=== PATIENT | female | born 1960 | race Caucasian/White ===

== ENCOUNTER 2025-02-19 08:04 | Inpatient (IN) | payer MEDICARE, MEDICAID ==
[~2025-02-19] VITALS: Ht 170.2 cm; Wt 108.0 kg
[~2025-02-19 08:04] MED LIST: ACET-1008 PO; ALB0.5UD NEB; ALLO100T16 PO; ASPI-1265 PO; ATOR20TA66 PO; BACL10TA2 PO; BENZ200C53 PO; BISA10SU60 RC; CEFD300C3 PO; DOCU100C40 PO; ENOX40SY7 SUBCUT; HYDR-3965 PO; IPRA3AMP31 IH; LACT1CAP86 PO; LOSA1TAB39 PO; MAGN400O6 PO; MULT-381 PO; NA P230E RC; OMEP-419 PO; TRAZ-251 PO
--- NOTE | 2025-02-19 09:15 | Physician Documentation ---
History of Present Illness General Chief Complaint: Dizziness Stated Complaint: DIZZINESS Time Seen by MD: 08:09 Primary Medical Doctor: Dr Ramos History of Present Illness Initial Comments The patient is a 65-year-old female who was transferred to our facility from [facility] for complaint of dizziness. The patient states she has had abdominal pain for a month and she has had intermittent nausea and vomiting as well as persistent dizziness. The patient denied any abdominal pain currently. She denies any fevers. She denies any shortness of breath. Patient is confused and somnolent and history is difficult most of the history has been given by EMS. Medication Reconciliation Allergies: Coded Allergies: Penicillins (Verified Allergy, Unknown, 02/19/25) Scheduled Allopurinol (Allopurinol), 100 MG PO DAILY, (Reported) Aspirin (Aspirin), 1 TAB PO DAILY, (Reported) Atorvastatin Calcium (Atorvastatin Calcium), 1 TAB PO DAILY, (Reported) Benzonatate (Benzonatate), 1 CAP PO DAILY, (Reported) Docusate Sodium (Docusate Sodium), 1 CAP PO Q12H, (Reported) Enoxaparin Sodium (Lovenox), 0.4 ML SUBCUT DAILY, (Reported) Escitalopram Oxalate (Escitalopram Oxalate), 1 TAB PO DAILY, (Reported) Gabapentin (Gabapentin), 1 CAP PO Q8H, (Reported) Lactobacillus Acidophilus (Acidophilus Lactobacilli), 1 CAP PO Q12H, (Reported) Losartan/Hydrochlorothiazide (Losartan-Hctz 100-25 Mg Tab), 1 TAB PO DAILY, (Reported) Multivitamin with Minerals (Daily Vitamin Formula-Minerals), 1 TAB PO DAILY, (Reported) Omeprazole (Omeprazole), 1 TAB PO DAILY, (Reported) Trazodone HCl (Trazodone HCl), 1 TAB PO HS, (Reported) Scheduled PRN Acetaminophen (Tylenol), 2 TAB PO Q6H PRN for pain, (Reported) Albuterol Sulfate Nebs* (Proventil Nebs*), 1 VIAL NEB Q2H PRN for SOB or wheezing, (Reported) Baclofen (Baclofen), 1 TAB PO Q8H PRN for muscle spasms, (Reported) Bisacodyl (Dulcolax), 1 SUPP RC DAILY PRN for constipation, (Reported) Hydrocodone Bit/Acetaminophen 5/325 MG (Jackson 5/325 MG), 1-2 TAB PO Q6H PRN for pain, (Reported) Ipratropium/Albuterol Sulfate (Duoneb 2.5-0.5 Mg/3 Ml Soln), 3 ML IH Q4H PRN for SOB or wheezing, (Reported) Magnesium Hydroxide (Milk of Magnesia), 30 ML PO DAILY PRN for constipation, (Reported) Na Phos,M-B/Na Phos,Di-Ba (Fleet Enema Extra), 1 RC DAILY PRN for constipation, (Reported) Miscellaneous Medications ONDANSETRON ODT 4mg tablet (Ondansetron Odt), 4 MG PO, (Reported) Discontinued Medications Cefdinir* (Cefdinir*), 1 CAP PO Q12H, (Reported) Discontinued Reason: patient no longer taking Past Medical History Past Medical History: GERD, Pancreatitis, Chronic Back Pain, Anxiety, Depression Past Surgical History: hysterectomy, tubal ligation, other Smoking: Cigarettes Alcohol Use: None Drug Use: none Lives with: Spouse Review of Systems All Other Systems at this time: Reviewed and Negative Physical Exam Physical Exam Vital Signs: Temperature: 97.6, Source: Oral, Heart Rate: 77, Respiratory Rate: 14, BP: 85/44, Pulse Oximetry: 93, Weight: 108.000 Physical Exam VITALS: Reviewed and as above. GENERAL: Somnolent but arousable, no apparent distress. HEENT: Normocephalic, atraumatic, PERRL, EOMI, dry mucosa, no erythema RESPIRATORY: Bilateral wheezes crackles right mid lung, no respiratory distress. CHEST: No accessory muscle use, no retractions CV: Regular rate, rhythm, no edema, no murmur, No: JVD GI: Soft, distended some epigastric tenderness bowels sounds present, no rebound, guarding, or rigidity BACK: No CVA tenderness, or swelling MUSCULOSKELETAL: No deformities, no edema SKIN: Warm and dry, no rash NEURO: Oriented x2, No motor or sensory deficit the patient is oriented to name and to the month but not to the date and she is confused and has to be frequently stimulated to as she falls asleep PSYCH: Somnolent no agitation Progress Results/Orders Results/Orders Orders - OHLFS,TRISTAN Mcfarlane MD Chest,Single View (02/19/25 09:04) Saline Lock (02/19/25:04) Monitor (02/19/25:) Culture Blood (02/19/25 11:29) Page Hospitalist (02/19/25:) Fill Out Med Reconciliation (02/19/25:) Completed Orders - OHLFS,TRISTAN Mcfarlane MD Cbc/Diff (02/19/25:) MG (02/19/25:04) Electrocardiogram (02/19/25:) PBNP (02/19/25:04) Chest,Single View (02/19/25:) BMP (02/19/25:) Hs Troponin I W Calculations (02/19/25:) Hs Troponin I W Calculations (02/19/25:) Hs Troponin I W Calculations (02/19/25 12:04) Procalcitonin (02/19/25:) Normal Saline 1000ml (0.9% Sodium Chlori (02/19/25 09:05) Urinalysis, Cult If Indicated (02/19/25:) Normal Saline 1000ml (0.9% Sodium Chlori (02/19/25 11:30) Ceftriaxone 2gm/D5w 50ml Bag (Rocephin 2 (02/19/25 11:) Lacticsepsis (02/19/25 11:33) Hydrocodone/Apap 5/325mg Tab (Jackson 5/32 (02/19/25 12:05) Vital Signs 02/19/25 02/19/25 08:19 10:55 Temp 97.6 Pulse 77 Resp 14 25 B/P (MAP) 85/44 Pulse Ox 93 Laboratory Tests Test 02/19/25 09:40 02/19/25 10:58 02/19/25 11:56 White Blood Count 8.6 Red Blood Count 3.63 L Hemoglobin 12.1 Hematocrit 34.6 L Mean Corpuscular Volume 95.4 Mean Corpuscular Hemoglobin 33.4 H Mean Corpuscular Hemoglobin Concent 35.0 Red Cell Distribution Width 14.7 H Platelet Count 411 Mean Platelet Volume 8.0 Neutrophils (%) (Auto) 74.3 Lymphocytes (%) (Auto) 12.8 L Monocytes (%) (Auto) 11.3 Eosinophils (%) (Auto) 0.6 Basophils (%) (Auto) 1.0 Neutrophils # (Auto) 6.4 Lymphocytes # (Auto) 1.1 Monocytes # (Auto) 1.0 H Eosinophils # (Auto) 0.0 Basophils # (Auto) 0.1 CBC Comment Sodium Level 135 Potassium Level 4.5 Chloride Level 100 Carbon Dioxide Level 24.9 Anion Gap 10 Blood Urea Nitrogen 61 H Creatinine 2.51 H Estimated GFR/1.73 m2 19 BUN/Creatinine Ratio 24.3 H Glucose Level 123 H Lactic Acid Level 0.8 Calcium Level 8.3 L Magnesium Level 1.5 Troponin I High Sensitivity 9 8 9 Pro-B-Type Natriuretic Peptide 735 H Albumin 1.8 L Procalcitonin 1.52 H Chemistry Comments Troponin I High Sens Percent Delta 11 12 Troponin I Hi Sens Absolute Change -1 1 Microbiology Date/Time Source Procedure Growth Status 02/19/25 11:56 Blood Arm Left Blood Culture - Preliminary NO GROWTH AFTER 3 DAYS Resulted EKG/XRAY/CT/US/VASC/MRI Chest X-Ray : Additional Comments Patient: EDITH YAÑEZ Medical Record: [id number] ELIZABETH FORT THOMAS : 1960, Age: 65 Sex: Female Location: ER Patient Status: [facility] ER Service Date/Time: 02/19/25903 Ordering Physician: TRISTAN POWELL MD Exam: CHEST,SINGLE VIEW CHEST RADIOGRAPH Indication: CP Technique: Single frontal view of the chest was obtained COMPARISON: DI CHEST,SINGLE VIEW on DOS: 01/28/25 FINDINGS: Lines and Tubes: None Lungs: Mildly increased markings right lung base. Pleura: Blunting left costophrenic angle new since the prior study. Small pleural effusion suspect. No pneumothorax. Cardiomediastinal contours: Unremarkable Bones: Unremarkable IMPRESSION: 1. Small left pleural effusion. Mildly increased markings right lung base. Electronically Signed by:CARA VARNER MD Date & Time: 02/19/25929 Dictated by: CARA VARNER MD Dictation date and time: 02/19/25910 Primary Care Provider: NO PRIMARY CARE PROVIDER cc: TRISTAN POWELL MD ~ Medical Decision Making Findings The patient is 12 lead EKG was interpreted as a sinus rhythm with a normal axis and low voltages. The patient also had nonspecific ST abnormalities time of the EKG interpretation was 9:17 a.m. and the heart rate was 81 was interpreted as an abnormal EKG. The patient presents with dizziness and weakness patient was found to be in acute kidney injury as well as to have likely pneumonia, the patient was treated with antibiotics. The patient was given IV fluids in the emergency department. The patient has remained hemodynamically stable. Previous hospitalizations have been reviewed. The patient's pulse oximetry was interpreted as low and abnormal. The patient's he will be admitted to the hospitalist case has been discussed with the hospitalist. The patient will also had hypotension I do believe this is secondary to dehydration rather than sepsis the patient was treated with IV fluids. Departure Admitted to Inpatient Unit: yes, to hospitalist Impression: Primary Impression: Acute kidney injury Additional Impressions: Altered mental status, unspecified Qualified Codes: R41.82 - Altered mental status, unspecified Pneumonia Qualified Codes: J18.9 - Pneumonia, unspecified organism Dizziness Dehydration Referrals: NO PRIMARY CARE PROVIDER (PCP) Signature Scribe Signature: no scribe Attestation: The note accurately reflects work and decisions made by me.Tristan Powell MD 02/23/25 07:46 TRISTAN POWELL MD Feb 19, 2025 09:15
--- NOTE | 2025-02-19 09:17 | ELECTROCARDIOGRAPH REPORT ---
[facility] Test Date: 2025-02-19 Test Time: 09:15:20 Pat Name: EDITH YAÑEZ Department[id number] Room: Gender: F [employer] Athlete: : 1960 Requested By: TRISTAN JACK Order Number: [id number] Reading MD: Measurements Intervals [place] Rate: 81 P: 52 ND: 166 QRS: 55 QRSD: 91 T: 34 QT: 470 QTc: 546 Interpretive Statements Sinus rhythm Low voltage, precordial leads Borderline T wave abnormalities Prolonged QT interval Please click the below link to view image of tracing.
--- NOTE | 2025-02-19 09:33 | RADIOLOGY REPORT ---
CHEST RADIOGRAPH Indication: CP Technique: Single frontal view of the chest was obtained COMPARISON: DI CHEST,SINGLE VIEW on DOS: 01/28/25 FINDINGS: Lines and Tubes: None Lungs: Mildly increased markings right lung base. Pleura: Blunting left costophrenic angle new since the prior study. Small pleural effusion suspect. No pneumothorax. Cardiomediastinal contours: Unremarkable Bones: Unremarkable IMPRESSION: 1. Small left pleural effusion. Mildly increased markings right lung base.
[2025-02-19 10:09] LABS: MEAN PLATELET VOLUME 8.0 FL (7.4-10.4); RED CELL DISTRIBUTION WIDTH 14.7 % (11.5-14.5)
[2025-02-19 10:32] LABS: CREATININE 2.51 MG/DL (0.40-0.90); PRO BRAIN NATRIURETIC PEPTIDE 735 PG/ML (0-125); TOTAL CARBON DIOXIDE 24.9 MMOL/L (24-32); eCRCL 22 ML/MIN; eGFR 19 ML/MIN
[2025-02-19] MEDS: normal saline 1000ML IV soln IVB ONE ×2 (10:47→11:36)
[2025-02-19] MEDS: CefTRIAXone 2gm/D5W 50ml BAG 50 ML IV ONE (11:36)
[2025-02-19] MEDS ORDERED: magnesium sulf-water 4G/100mL 100 ML IV PRN (12:15)
[2025-02-19] MEDS ORDERED: magnesium sulf-water 2g/50mL 50 ML IV PRN (12:15)
[2025-02-19] MEDS ORDERED: potassium Cl 20 mEq SR tablet PO PRN ×2 (12:15)
[2025-02-19] MEDS ORDERED: potassium Cl 40MEQ/1/2NS 520ml 520 ML IV PRN (12:15)
[2025-02-19] MEDS ORDERED: magnesium Cl slow-release 64mg tablet PO PRN (12:15)
[2025-02-19] MEDS: HYDROcodone/acetaminophen 5mg/325mg tablet PO ONE (12:40)
[2025-02-19] MEDS: nicotine 14mg patch - 24hr TD SCH (13:45)
[2025-02-19] MEDS: normal saline 1000ml 1,000 ML IV SCH (13:46)
[2025-02-19] MEDS ORDERED: GABA-530 PO (14:40)
[2025-02-19] MEDS ORDERED: ESCI20TA39 PO (14:53)
[2025-02-19] MEDS ORDERED: ONDA-243 PO (14:53)
[2025-02-19] MEDS: ondansetron/PF 4mg/2ml inj IV PRN (16:59)
[2025-02-19] MEDS ORDERED: metoclopramide 5 mg/ml inj IV PRN (18:05)
[2025-02-19 19:56] LABS: LEUKOCYTE ESTERASE ,URINE NEGATIVE (Neg); NITRITES, URINE NEGATIVE (Neg); OCCULT BLOOD,URINE NEGATIVE (Neg)
[2025-02-19 19:58] LABS: UA COLLECTION TYPE NON-SPECIFIED
--- NOTE | 2025-02-19 20:28 | HISTORY AND PHYSICAL ---
History & Physical Providers to CC ~ History of Present Illness Reason for Admit\Complaint: Acute kidney injury, ALOC , possible pneumonia History of Present Illness Patient is 65-year-old female with known medical history of GERD, Pancreatitis, Chronic Back Pain, Anxiety, Depression. This is patient's 3rd admission since January 28, 2025 in our hospital. On January 28, 2025 she was discharged with a diagnosis of left ankle fracture due to ground level mechanical fall toxic metabolic encephalopathy acute kidney injury anxiety, peripheral neuropathy and other diagnosis. In on January she was diagnosed with right ankle stress fracture nondisplaced fracture of anterior dorsal aspect of talus, chronic back pain. In both her visit she was sent to rehab. Patient today's coming from [facility] rehab . Hospitalist service contacted for admission due to acute kidney injury, altered level of consciousness and possible pneumonia. Son who was present at bedside concerned about her current medical status. All medications discussed from rehab medication list and it was explained that patient is on multiple sedative and narcotic medication which can cause altered level of consciousness, patient is also on hydrochlorothiazide 25 mg for blood pressure control contributing to acute kidney injury. Allergies: Coded Allergies: Penicillins (Verified Allergy, Unknown, 02/19/25) Home Medications Home Medications Active Reported Escitalopram Oxalate 20 Mg Tablet 1 Tab PO DAILY 30 Days Ondansetron Odt (Ondansetron HCl) 4 Mg Tab.rapdis 4 Mg PO Gabapentin 100 Mg Capsule 1 Cap PO Q8H 30 Days Daily Vitamin Formula-Minerals (Multivitamin with Minerals) 1 Each Tablet 1 Tab PO DAILY Milk of Magnesia (Magnesium Hydroxide) 400 Mg/5 Ml Oral.susp 30 Ml PO DAILY PRN 7 Days Lovenox (Enoxaparin Sodium) 40 Mg/0.4 Ml Disp.syrin 0.4 Ml SUBCUT DAILY Fleet Enema Extra (Na Phos,M-B/Na Phos,Di-Ba) 19 Gram-7 Gram/197 Ml Enema 1 RC DAILY PRN Docusate Sodium 100 Mg Caps 1 Cap PO Q12H Dulcolax (Bisacodyl) 10 Mg Supp.rect 1 Supp RC DAILY PRN Tylenol (Acetaminophen) 325 Mg Tablet 2 Tab PO Q6H PRN Duoneb 2.5-0.5 Mg/3 Ml Soln (Ipratropium/Albuterol Sulfate) 0.5 Mg-3 Mg (2.5 Mg Base)/3 Ml Ampul.neb 3 Ml IH Q4H PRN Aspirin 81 Mg Tab.chew 1 Tab PO DAILY 30 Days Proventil Nebs* (Albuterol) 2.5 Mg/0.5 Ml Vial.neb 1 Vial NEB Q2H PRN 10 Days Acidophilus Lactobacilli (Lactobacillus Acidophilus) 500 Million Cell Capsule 1 Cap PO Q12H 30 Days Benzonatate 200 Mg Capsule 1 Cap PO DAILY Atorvastatin Calcium 20 Mg Tablet 1 Tab PO DAILY Omeprazole 20 Mg Tab.rap.dr 1 Tab PO DAILY Allopurinol 100 Mg Tablet 100 Mg PO DAILY Losartan-Hctz 100-25 Mg Tab (Losartan/Hydrochlorothiazide) 100 Mg-25 Mg Tablet 1 Tab PO DAILY Trazodone HCl 50 Mg Tablet 1 Tab PO HS Ridgeley 5/325 MG (Acetaminophen/Hydrocodone Bitart) 5 Mg/325 Mg Tablet 1-2 Tab PO Q6H PRN Baclofen 10 Mg Tablet 1 Tab PO Q8H PRN Past Medical History Past Medical History GERD, Pancreatitis, Chronic Back Pain, Anxiety, Depression, Past Surgical History Surgical History Comment hysterectomy, tubal ligation, other orthopedic surgery Family History Family History: FH: cirrhosis FATHER FH: hypertension CHILD FHx: cancer MOTHER Past Social History Social History Comment Patient's smokes cigarettes ROS ROS Review of system difficult to obtain as patient was confused Exam Vitals: Vital Signs Date Time Temp Pulse Resp B/P (MAP) Pulse Ox O2 Delivery O2 Flow Rate FiO2 02/19/25 19:42 96 18 137/112 (120) 100 2.5 02/19/25 08:19 97.6 General: General-patient not in any acute distress, partially awake chronically ill- appearing, obese HEENT-atraumatic normocephalic, neck supple without elevated JVD, no thyromegaly or carotid bruit. No lymphadenopathy bilaterally. Eyes-no icterus or pallor seen in eyes Chest-clear to auscultation bilaterally, breathing nonlabored no tachypnea, no wheezing, no crepitation, no crackles. Heart-S1-S2 normal, regular heart rate no murmur Abdomen bowel sounds positive on auscultation, soft nondistended nontender no guarding, no rigidity Skin no active skin rash Neurology-grossly intact, nonfocal awake responded to verbal commands Extremity- no pedal edema able to move all 4 extremities Diagnostic Data Last Recorded Lab Results: 02/19/25 0940 02/19/2540 Advance Care Planning Advanced Care plannin - 30 Minutes Additional Plan Patient is 65-year-old female with known medical history of GERD, Pancreatitis, Chronic Back Pain, Anxiety, Depression. This is patient's 3rd admission since January 28, 2025 in our hospital. On January 28, 2025 she was discharged with a diagnosis of left ankle fracture due to ground level mechanical fall toxic metabolic encephalopathy acute kidney injury anxiety, peripheral neuropathy and other diagnosis. In on January she was diagnosed with right ankle stress fracture nondisplaced fracture of anterior dorsal aspect of talus, chronic back pain. In both her visit she was sent to rehab. Patient today's coming from [facility] rehab . Hospitalist service contacted for admission due to acute kidney injury, altered level of consciousness and possible pneumonia. # altered level of consciousness- Son who was present at bedside concerned about her current medical status. All medications discussed from rehab medication list and it was explained that patient is on multiple sedative and narcotic medication which can cause altered level of consciousness, # acute kidney injury - patient is also on hydrochlorothiazide 25 mg for blood pressure control contributing to acute kidney injury. IV fluids ordered we will monitor patient's renal function # possible pneumonia with elevated procalcitonin. Patient is started on strep ceftriaxone and Zithromax. # patient later become agitated Ativan and Valium ordered # other comorbidities needs to be treated during hospitalization include - GERD, Chronic Back Pain, Anxiety, Depression. We will continue to monitor patient's labs and vitals closely . Needs physical therapy evaluation before discharge . Code status discussed with the patient s son , he mentioned patient is full code and showed POLST record. Time spent in discussing code status 16 minutes. We will do home medication reconciliation once updated in electronic by nursing staff or pharmacist. Further management depending on response to treatment . I will continue to follow patient in a.m. Date of Service: Feb 19, 2025 Billing Provider: CY NEGRETE MD Common Visit Codes: [id number] INP/OBS CARE (HIGH) CY NEGRETE MD Feb 19, 2025 20:27
[2025-02-19] MEDS: heparin, porcine 5000 units/ml vial SQ SCH (21:03)
[2025-02-19 23:00] VITALS: BP 117/65; PULSE 91; RESP 18; TEMP 97.6; O2SAT 95
[2025-02-20] VITALS (9 sets, daily range): BP systolic 119–144; BP diastolic 51–72; PULSE 70–97; RESP 16–24; TEMP 97.9–98.5; O2SAT 93–96
[2025-02-20] MEDS: LidoCAINE 2% Topical Jelly 11mL syringe (UROJET) TOP ONE (02:04)
[2025-02-20 05:38] LABS: MEAN PLATELET VOLUME 7.7 FL (7.4-10.4); RED CELL DISTRIBUTION WIDTH 14.3 % (11.5-14.5)
[2025-02-20 05:51] LABS: CREATININE 1.92 MG/DL (0.40-0.90); TOTAL CARBON DIOXIDE 22.9 MMOL/L (24-32); eCRCL 28 ML/MIN; eGFR 26 ML/MIN
[2025-02-20] MEDS ORDERED: azithromycin/NS 500mg/250ml 250 ML IV SCH (08:00)
[2025-02-20] MEDS: azithromycin/NS 500mg/250ml 250 ML IV SCH (08:14)
[2025-02-20] MEDS: CefTRIAXone 2gm/D5W 50ml BAG 50 ML IV SCH (08:15)
[2025-02-20] MEDS: HYDROcodone/acetaminophen 5mg/325mg tablet PO PRN (09:37)
[2025-02-20] MEDS ORDERED: bisacodyl 10mg suppository rectal RC PRN (11:35)
[2025-02-20] MEDS ORDERED: ipratropium/albuterol 3ml nebule IH PRN (11:35)
[2025-02-20] MEDS: diazepam inj 5 MG/ML inj. IV PRN (12:10)
[2025-02-20 12:57] LABS: ABG BASE EXCESS -3.6 mmol/L (-2.0-3.0); ABG HCO3 21.3 mmol/L (21.0-28.0); ABG OXYGEN SATURATION 94.6 % (94.0-98.0); ABG PCO2 (T) 37.5 mmHg (32.0-45.0); ABG PH (T) 7.370 (7.350-7.450); ABG PO2 (T) 72.0 mmHg (83.0-108.0); ALLEN'S TEST POSITIVE; FCOHb 0.7 % (0.5-1.5); FHHb 5.3 % (0.0-5.0); FIO2 28.0 mmHg/%; FMetHb 0.3 % (0.0-1.5); FO2Hb 93.7 % (94.0-98.0); MODE NC; PATIENT TEMPERATURE 36.9; TOTAL HEMOGLOBIN 12.1 G/dl (12.0-16.0)
--- NOTE | 2025-02-20 13:52 | RADIOLOGY REPORT ---
EXAM: CT CT ABDOMEN PELVIS HISTORY: distended abdomen TECHNIQUE: Volumetric multidetector CT images of the abdomen and pelvis were obtained after the administration of intravenous contrast. All CT scans at this facility use dose modulation, iterative reconstruction, and/or weight based dosing when appropriate to reduce radiation dose to as low as reasonably achievable. COMPARISON: US ULTRASOUND OF ABDOMEN on DOS: 02/06/25 FINDINGS: [LOWER CHEST]: Medium bilateral pleural effusions with atelectasis in bilateral lung bases. Coronary artery calcifications. [LIVER]: Slight no trochlear contour of the liver which may reflect underlying chronic liver disease [GALLBLADDER AND BILIARY TREE]: Layering cholelithiasis. Gallbladder is distended. Indeterminate 1.4 cm density of the aspect of the distal common bile duct and correlate for choledocholithiasis (2-55). Common bile duct dilation up to 1.6-1.8 cm. [SPLEEN]: Unremarkable. [PANCREAS]: Unremarkable. [ADRENAL GLANDS]: Unremarkable [KIDNEYS]: No hydronephrosis. No nephroureterolithiasis. [BLADDER]: Marie catheter decompression [REPRODUCTIVE ORGANS]: Appearance of hysterectomy. Indeterminate soft tissue density, oval-shaped measuring 3.8 x 3.8 cm presumably in the retained right adnexa. Left adnexa measures 3.8 cm. Underlying malignancy/ mass not excluded. [BOWEL/MESENTERY]: Stomach is normal. No CT evidence of bowel obstruction. [ASCITES]: large volume ascites. No definitive nodularity. [LYMPHADENOPATHY]: No pathologically enlarged lymph nodes by CT size criteria [VASCULATURE]: No aneurysmal dilatation. [ABDOMINAL WALL]: Unremarkable. [MUSCULOSKELETAL]: Superior endplate height loss measuring 10 percent of T12. Multifocal degenerative change of the visualized spine. IMPRESSION: 1. Large volume ascites. Medium bilateral pleural effusions. 2. Indeterminate soft tissue density in the right adnexa. Underlying malignancy not excluded. 3. Cholelithiasis with distended gallbladder. Indeterminate density in the distal common bile duct. Correlate for choledocholithiasis. Consider follow-up MRCP.
[2025-02-20] MEDS ORDERED: albuterol 2.5 MG/3 ML nebule NEB SCH (14:00)
--- NOTE | 2025-02-20 19:03 | PROGRESS NOTE ---
Daily Progress Note Providers to CC ~ Antibiotic Timeout Antibiotic Ordered?: Yes Subjective Care plan discussed with the patient's daughter and Son in visit . all questions answered and all concerns addressed appropriately. Abdomen pelvis and CT scan results reviewed ordered paracentesis for a.m. pelvic ultrasound also ordered indeterminate soft tissue density in the right adnexa. Objective Vital Signs Date Time Temp Pulse Resp B/P (MAP) Pulse Ox O2 Delivery O2 Flow Rate FiO2 02/20/25 16:28 95 Nasal Cannula* 2 28 02/20/25 12:59 80 20 02/20/25 10:00 98.5 130/71 (90) Result Diagram: 02/20/25 0510 02/20/25 0510 General-patient not in any acute distress, awake chronically ill-appearing, obese HEENT-atraumatic normocephalic, neck supple without elevated JVD, no thyromegaly or carotid bruit. No lymphadenopathy bilaterally. Eyes-no icterus or pallor seen in eyes, poor eye contact keeping her eyes closed Chest-clear to auscultation bilaterally, breathing nonlabored no tachypnea, no wheezing, no crepitation, no crackles. Heart-S1-S2 normal, regular heart rate no murmur Abdomen bowel sounds positive on auscultation, soft nondistended nontender no guarding, no rigidity Skin no active skin rash Neurology-grossly intact, nonfocal responded to verbal commands Extremity- no pedal edema able to move all 4 extremities Problem\Assessment\Plan Patient is 65-year-old female with known medical history of GERD, Pancreatitis, Chronic Back Pain, Anxiety, Depression. This is patient's 3rd admission since January 28, 2025 in our hospital. On January 28, 2025 she was discharged with a diagnosis of left ankle fracture due to ground level mechanical fall toxic metabolic encephalopathy acute kidney injury anxiety, peripheral neuropathy and other diagnosis. In on January she was diagnosed with right ankle stress fracture nondisplaced fracture of anterior dorsal aspect of talus, chronic back pain. In both her visit she was sent to rehab. Patient today's coming from [facility] . Hospitalist service contacted for admission due to acute kidney injury, altered level of consciousness and possible pneumonia. # altered level of consciousness- Son who was present at bedside concerned about her current medical status. All medications discussed from rehab medication list and it was explained that patient is on multiple sedative and narcotic medication which can cause altered level of consciousness, # acute kidney injury - patient is also on hydrochlorothiazide 25 mg for blood pressure control contributing to acute kidney injury. IV fluids ordered we will monitor patient's renal function # possible pneumonia with elevated procalcitonin. Patient is started on strep ceftriaxone and Zithromax. # patient later become agitated Ativan and Valium ordered # other comorbidities needs to be treated during hospitalization include - GERD, Chronic Back Pain, Anxiety, Depression. We will continue to monitor patient's labs and vitals closely . Needs physical therapy evaluation before discharge . Code status discussed with the patient s son , he mentioned patient is full code and showed POLST record. home medication reconciliation updated in electronic records. Further management depending on response to treatment . I will continue to follow patient in a.m. Date of Service: Feb 20, 2025 Billing Provider: CY NEGRETE MD Common Visit Codes: [id number] INP/OBS CARE(HIGH) CY NEGRETE MD Feb 20, 2025 19:03
[2025-02-20] MEDS: lactobacillus rhamnosus 10,000 MMU CELLS/CAPSULE PO SCH (21:18)
[2025-02-21] VITALS (13 sets, daily range): BP systolic 102–124; BP diastolic 45–72; PULSE 75–102; RESP 18–26; TEMP 97.7–97.9; O2SAT 91–97
[2025-02-21] MEDS: morphine 4 MG/ML inj SYRINge IV PRN (01:11)
[2025-02-21 05:44] LABS: MEAN PLATELET VOLUME 7.6 FL (7.4-10.4); RED CELL DISTRIBUTION WIDTH 14.3 % (11.5-14.5)
[2025-02-21 06:03] LABS: CREATININE 1.33 MG/DL (0.40-0.90); TOTAL CARBON DIOXIDE 23.3 MMOL/L (24-32); eCRCL 41 ML/MIN; eGFR 40 ML/MIN
[2025-02-21] MEDS: ESCITALOPRAM 10 mg tablet 10 MG TABLET PO SCH (10:24)
[2025-02-21] MEDS: pantoprazole 40mg Tablet.DR PO SCH (10:38)
--- NOTE | 2025-02-21 12:41 | RADIOLOGY REPORT ---
INDICATION: Indeterminate soft tissue density in the right adnexa. TECHNIQUE: Multiple real-time grayscale transabdominal sonographic images along with color and duplex Doppler of the uterus and ovaries were obtained. COMPARISON: CT CT ABDOMEN PELVIS on DOS: 02/20/25, US ULTRASOUND OF ABDOMEN on DOS: 02/06/25 FINDINGS/IMPRESSION: Essentially nondiagnostic exam due to technique and large volume ascites. Nonvisualization of the uterus and bilateral ovaries.
[2025-02-21] MEDS: ipratropium/albuterol 3ml nebule IH SCH (13:52)
--- NOTE | 2025-02-21 13:54 | RADIOLOGY REPORT ---
PROCEDURE: ULTRASOUND GUIDED PARACENTESIS HISTORY: 65 Female requiring paracentesis. TECHNIQUE: The risks and benefits of the procedure including but not limited to bleeding, infection and injury to abdominal organs were explained to the patient and written informed consent was obtained. Optimal site for puncture was determined using ultrasound and the area sterilized and draped. Using a 5 Lithuan[place] Yueh catheter, paracentesis was performed in the right lower quadrant abdomen. Approximately 40 mL of serous fluid was removed. The patient tolerated the procedure well. There were no imme diate complications. IMPRESSION: Ultrasound-guided paracentesis with no immediate complications. Procedure performed by Dr. Lauren.
[2025-02-21 14:14] LABS: GLUCOSE,BODY FLUID 87 MG/DL; LDH,BODY FLUID 96 U/L; TOTAL PROTEIN,BODY FLUID 2.9 G/DL
[2025-02-21 14:28] LABS: BF RBC COUNT 4120 /CU MM; BF WBC COUNT 755 /CU MM (0-1000); BFAPPEAR HAZY; BFCOLOR YELLOW; BFSOURCE ASCITES FLD; BFVOLUME 40 ML; EOSINOPHILS,BODY FLUID 1 %; LYMPHOCYTES,BODY FLUID 67 %; MONOCYTES,BODY FLUID 14 %; NEUTROPHILS,BODY FLUID 18 %
--- NOTE | 2025-02-21 14:36 | RADIOLOGY REPORT ---
EXAM: DI CHEST,SINGLE VIEW Indication: SOB Technique: Single frontal view of the chest was obtained Comparison: DI CHEST,SINGLE VIEW on DOS: 02/19/25, DI CHEST,SINGLE VIEW on DOS: 01/28/25 FINDINGS: Lines and Tubes: None Lungs: Small right pleural effusion. No pneumothorax. Cardiomediastinal contours: Unremarkable Bones: No acute osseous abnormality. IMPRESSION: Small right pleural effusion
[2025-02-21] MEDS: lactose-reduced food (Ensure Enlive) - 237ml bottle PO SCH (18:13)
--- NOTE | 2025-02-21 18:58 | PROGRESS NOTE ---
Daily Progress Note Providers to CC ~ Antibiotic Timeout Antibiotic Ordered?: Yes Subjective Patient was seen in presence of patient's daughter and other family member today. Daughter who was present at bedside concerned about her current altered medical status and pain medication needs . All medications discussed from rehab medication list and it was explained that patient is on multiple sedative and narcotic medication which can cause altered level of consciousness, patient is also on hydrochlorothiazide 25 mg for blood pressure control contributing to acute kidney injury. Care plan discussed with the patient's family member and patient , all questions answered and all concerns addressed appropriately. Patient had paracentesis done only 40 mL fluid was taken out. But as per pelvis ultrasound report " Essentially nondiagnostic exam due to technique and large volume ascites. Nonvisualization of the uterus and bilateral ovaries" Objective Vital Signs Date Time Temp Pulse Resp B/P (MAP) Pulse Ox O2 Delivery O2 Flow Rate FiO2 02/21/25 15:59 102 26 Nasal Cannula 1.0 02/21/25 15:53 95 28 02/21/25 13:30 119/72 (88) 02/21/25 10:00 97.7 Result Diagram: 02/21/25 0429 02/21/25 0429 General-patient not in any acute distress, chronically ill-appearing, obese, mildly confused HEENT-atraumatic normocephalic, neck supple without elevated JVD, no thyromegaly or carotid bruit. No lymphadenopathy bilaterally. Eyes-no icterus or pallor seen in eyes, poor eye contact keeping her eyes closed Chest-clear to auscultation bilaterally, breathing nonlabored no tachypnea, no wheezing, no crepitation, no crackles. Heart-S1-S2 normal, regular heart rate no murmur Abdomen bowel sounds positive on auscultation, soft nondistended nontender no guarding, no rigidity. Marked demarcation between upper abdomen which is big and below umbilical it is soft and flabby Skin no active skin rash Neurology-grossly intact, nonfocal mildly confused but responded to verbal commands Extremity- no pedal edema able to move all 4 extremities Problem\\Assessment\\Plan Patient is 65-year-old female with known medical history of GERD, Pancreatitis, Chronic Back Pain, Anxiety, Depression. This is patient's 3rd admission since January 28, 2025 in our hospital. On January 28, 2025 she was discharged with a diagnosis of left ankle fracture due to ground level mechanical fall toxic metabolic encephalopathy acute kidney injury anxiety, peripheral neuropathy and other diagnosis. In on January she was diagnosed with right ankle stress fracture nondisplaced fracture of anterior dorsal aspect of talus, chronic back pain. In both her visit she was sent to rehab. Patient [facility]'s [facility] . Hospitalist service contacted for admission due to acute kidney injury, altered level of consciousness and possible pneumonia. # altered level of consciousness- Son who was present at bedside concerned about her current medical status. All medications discussed from rehab medication list and it was explained that patient is on multiple sedative and narcotic medication which can cause altered level of consciousness, 02/21/25- Patient was seen in presence of patient's daughter and other family member today. Daughter who was present at bedside concerned about her current altered medical status and pain medication needs . All medications discussed from rehab medication list and it was explained that patient is on multiple sedative and narcotic medication which can cause altered level of consciousness, patient is also on hydrochlorothiazide 25 mg for blood pressure control contributing to acute kidney injury. Care plan discussed with the patient's family member and patient , all questions answered and all concerns addressed appropriately. Patient had paracentesis done only 40 mL fluid was taken out. But as per pelvis ultrasound report " Essentially nondiagnostic exam due to technique and large volume ascites. Nonvisualization of the uterus and bilateral ovaries" # acute kidney injury - patient is also on hydrochlorothiazide 25 mg for blood pressure control contributing to acute kidney injury. IV fluids ordered we will monitor patient's renal function # possible pneumonia with elevated procalcitonin. Patient is started on strep ceftriaxone and Zithromax. # patient later become agitated Ativan and Valium ordered # other comorbidities needs to be treated during hospitalization include - GERD, Chronic Back Pain, Anxiety, Depression. We will continue to monitor patient's labs and vitals closely . Needs physical therapy evaluation before discharge . Code status discussed with the patient s son , he mentioned patient is full code and showed [facility] record. home medication reconciliation updated in electronic records. Further management depending on response to treatment . I will continue to follow patient in a.m. Date of Service: Feb 21, 2025 Billing Provider: CY NEGRETE MD Common Visit Codes: [id number] INP/OBS CARE(HIGH) CY NEGRETE MD Feb 21, 2025 18:58
--- NOTE | 2025-02-21 20:35 | PROCEDURE NOTE- Residance ---
Procedure Note Providers to CC ~ Description The patient, 65-year-old individual with a BMI of 48 (obese), underwent a therapeutic paracentesis for symptomatic ascites. Informed consent was obtained after discussion of the risks, benefits, and alternatives of the procedure. The patient was positioned supine, and the abdominal site was prepped and draped in a sterile manner. Ultrasound guidance was utilized to localize the ascitic fluid, which was essential given the patients body habitus. Local anesthesia was administered at the planned puncture site. Needle insertion was attempted; however, patient movement during the procedure limited complete drainage, resulting in only 40 mL of fluid successfully aspirated. The sample was sent for diagnostic evaluation. Despite the limited volume removed, the procedure was well tolerated without immediate complications, including hypotension, bleeding, or pain. The puncture site was dressed with a sterile dressing, and the patient was monitored post-procedure. Post-procedure plan: The patient will continue to be monitored for signs of bleeding, infection, or abdominal discomfort. The drained fluid will be sent for laboratory analysis as indicated. Due to the incomplete drainage, the plan is to reassess the patient tomorrow for potential repeat paracentesis. Date of Service: Feb 21, 2025 Billing Provider: SHAHLA HIGGINS MD,CYNTHIA, RES Feb 21, 2025 20:35
--- NOTE | 2025-02-21 20:40 | CONSULTATION REPORT - RESIDENT ---
Consult Providers to CC Resident Creating Document: CYNTHIA SOLIS RES History of Present Illness Reason for Admit\Complaint: Acute kidney injury, ALOC , possible pneumonia History of Present Illness 65-year-old female was admitted by Hospitalist team, for acute kidney injury, ALOC and possible pneumoniae. Patient currently being managed inpatient. ICU team was consulted for paracentesis. HPI as per admitting physician: Patient is 65-year-old female with known medical history of GERD, Pancreatitis, Chronic Back Pain, Anxiety, Depression. This is patient's 3rd admission since January 28, 2025 in our hospital. On January 28, 2025 she was discharged with a diagnosis of left ankle fracture due to ground level mechanical fall toxic metabolic encephalopathy acute kidney injury anxiety, peripheral neuropathy and other diagnosis. In on January she was diagnosed with right ankle stress fracture nondisplaced fracture of anterior dorsal aspect of talus, chronic back pain. In both her visit she was sent to rehab. [facility]'s [facility] . Hospitalist service contacted for admission due to acute kidney injury, altered level of consciousness and possible pneumonia. Son who was present at bedside concerned about her current medical status. All medications discussed from rehab medication list and it was explained that patient is on multiple sedative and narcotic medication which can cause altered level of consciousness, patient is also on hydrochlorothiazide 25 mg for blood pressure control contributing to acute kidney injury. Allergies: Coded Allergies: Penicillins (Verified Allergy, Unknown, 02/19/25) Home Medications Home Medications Active Reported Escitalopram Oxalate 20 Mg Tablet 1 Tab PO DAILY 30 Days Ondansetron Odt (Ondansetron HCl) 4 Mg Tab.rapdis 4 Mg PO Gabapentin 100 Mg Capsule 1 Cap PO Q8H 30 Days Daily Vitamin Formula-Minerals (Multivitamin with Minerals) 1 Each Tablet 1 Tab PO DAILY Milk of Magnesia (Magnesium Hydroxide) 400 Mg/5 Ml Oral.susp 30 Ml PO DAILY PRN 7 Days Lovenox (Enoxaparin Sodium) 40 Mg/0.4 Ml Disp.syrin 0.4 Ml SUBCUT DAILY Fleet Enema Extra (Na Phos,M-B/Na Phos,Di-Ba) 19 Gram-7 Gram/197 Ml Enema 1 RC DAILY PRN Docusate Sodium 100 Mg Caps 1 Cap PO Q12H Dulcolax (Bisacodyl) 10 Mg Supp.rect 1 Supp RC DAILY PRN Tylenol (Acetaminophen) 325 Mg Tablet 2 Tab PO Q6H PRN Duoneb 2.5-0.5 Mg/3 Ml Soln (Ipratropium/Albuterol Sulfate) 0.5 Mg-3 Mg (2.5 Mg Base)/3 Ml Ampul.neb 3 Ml IH Q4H PRN Aspirin 81 Mg Tab.chew 1 Tab PO DAILY 30 Days Proventil Nebs* (Albuterol) 2.5 Mg/0.5 Ml Vial.neb 1 Vial NEB Q2H PRN 10 Days Acidophilus Lactobacilli (Lactobacillus Acidophilus) 500 Million Cell Capsule 1 Cap PO Q12H 30 Days Benzonatate 200 Mg Capsule 1 Cap PO DAILY Atorvastatin Calcium 20 Mg Tablet 1 Tab PO DAILY Omeprazole 20 Mg Tab.rap.dr 1 Tab PO DAILY Allopurinol 100 Mg Tablet 100 Mg PO DAILY Losartan-Hctz 100-25 Mg Tab (Losartan/Hydrochlorothiazide) 100 Mg-25 Mg Tablet 1 Tab PO DAILY Trazodone HCl 50 Mg Tablet 1 Tab PO HS [place] 5/325 MG (Acetaminophen/Hydrocodone Bitart) 5 Mg/325 Mg Tablet 1-2 Tab PO Q6H PRN Baclofen 10 Mg Tablet 1 Tab PO Q8H PRN Past Medical History Past Medical History GERD, Pancreatitis, Chronic Back Pain, Anxiety, Depression, Past Surgical History Surgical History Comment Hysterectomy, tubal ligation, other orthopedic surgery Family History Family History: FH: cirrhosis FATHER FH: hypertension CHILD FHx: cancer MOTHER Past Social History Social History Comment Patient a admits to smoking, but no illicit use of drugs or alcohol ROS ROS Reviewed in full. All negative except for pertinent positive HPI. Exam Vitals: Vital Signs Date Time Temp Pulse Resp B/P (MAP) Pulse Ox O2 Delivery O2 Flow Rate FiO2 02/21/25 20:20 99 22 Nasal Cannula 2.0 02/21/25 20:12 91 24 02/21/25 13:30 119/72 (88) 02/21/25 10:00 97.7 General: Awake , alert, and oriented x4, resting comfortably in the bed, in no acute distress HEENT: Atraumatic, normocephalic, EOMI, anicteric sclera ; pink conjunctiva Neck: Trachea midline. Supple, full range of motion, no JVD Cardiac: Regular rhythm, regular rate with no murmurs all over the precordium. Respiratory: Equal breath sounds bilaterally, no tachypnea, no wheezing ,rub or rales, Chest wall is symmetric and without deformity. Gastrointestinal: Abdomen symmetric, distended, mildly tender, severely distended with thick abdominal wall Musculoskeletal: Pedal edema present with mild cyanosis Neurological: Mental status exam: alert and consciousness, orientation, memory, speech - Cranial nerve test: Cranial nerves 2-12 intact - Motor system: Nutrition, Tone 3+, Power 5/5, no involuntary movements - Sensory system: Intact - Reflex testing: Biceps, triceps and knee reflexes 2+ - Cerebellar: Normal Skin: Warm and dry Diagnostic Data Last Recorded Lab Results: 02/21/2542802/21/25428 Additional Plan # altered level of consciousness # acute kidney injury # possible pneumonia with elevated procalcitonin. # GERD, Chronic Back Pain, Anxiety, Depression ICU team was consulted for paracentesis. Optimal site for puncture was determined using ultrasound and the area sterilized and draped. Using a 5 [place] Snapkineh catheter, paracentesis was performed in the right lower quadrant abdomen. Approximately 40 mL of serous fluid was removed. The patient tolerated the procedure well. There were no immediate complications. however, patient movement during the procedure limited complete drainage, resulting in only 40 mL of fluid successfully aspirated. The sample was sent for diagnostic evaluation. Despite the limited volume removed, the procedure was well tolerated without immediate complications, including hypotension, bleeding, or pain. The puncture site was dressed with a sterile dressing, and the patient was monitored post-procedure. CT abdomen/pelvis: 1. Large volume ascites. Medium bilateral pleural effusions. 2. Indeterminate soft tissue density in the right adnexa. Underlying malignancy not excluded. 3. Cholelithiasis with distended gallbladder. Indeterminate density in the distal common bile duct. Correlate for choledocholithiasis. Pelvic ultrasound: Essentially nondiagnostic exam due to technique and large volume ascites. Nonvisualization of the uterus and bilateral ovaries. Code Status: Full code status Cynthia Solis MD Internal Medicine Resident, PGY-2 Date of Service: Feb 21, 2025 Billing Provider: SHAHLA HIGGINS MD, GAURAV, RES Feb 21, 2025 20:40
[2025-02-22] VITALS (16 sets, daily range): BP systolic 108–136; BP diastolic 50–71; PULSE 81–100; RESP 17–24; TEMP 97.9–98.6; O2SAT 91–99
[2025-02-22] MEDS: ipratropium/albuterol 3ml nebule NEB PRN (00:35)
[2025-02-22 04:41] LABS: MEAN PLATELET VOLUME 7.1 FL (7.4-10.4); RED CELL DISTRIBUTION WIDTH 14.2 % (11.5-14.5)
[2025-02-22 05:00] LABS: CREATININE 1.07 MG/DL (0.40-0.90); TOTAL CARBON DIOXIDE 23.6 MMOL/L (24-32); eCRCL 51 ML/MIN; eGFR 51 ML/MIN
[2025-02-22] MEDS ORDERED: polyethylene glycol 3350 17gm powd pack PO PRN (12:55)
[2025-02-22] MEDS ORDERED: albuterol 2.5 MG/3 ML nebule NEB PRN (13:05)
--- NOTE | 2025-02-22 15:29 | RADIOLOGY REPORT ---
PROCEDURE: ULTRASOUND GUIDED PARACENTESIS HISTORY: 65 Female requiring paracentesis. TECHNIQUE: The risks and benefits of the procedure including but not limited to bleeding, infection and injury to abdominal organs were explained to the patient and written informed consent was obtained. Optimal site for puncture was determined using ultrasound and the area sterilized and draped. Using a 5 Bahraini Yueh catheter, paracentesis was performed in the left lower quadrant abdomen. Approximately 3.15 liters of serous fluid was removed. The patient tolerated the procedure well. There were no immediate complications. IMPRESSION: Ultrasound-guided paracentesis with no immediate complications. Performed by Dr. Lauren.
--- NOTE | 2025-02-22 21:10 | PROGRESS NOTE ---
Daily Progress Note Providers to CC ~ Antibiotic Timeout Antibiotic Ordered?: No Subjective Patient was seen in her room waiting for the paracentesis, Dr. Lauren did the USG guided paracentesis and Approximately 3.15 liters of serous fluid was removed. Pain medication on board for pain control Objective Vital Signs Date Time Temp Pulse Resp B/P (MAP) Pulse Ox O2 Delivery O2 Flow Rate FiO2 02/22/25 19:51 20 02/22/25 19:36 81 94 Nasal Cannula* 2 28 02/22/25 13:43 108/50 (69) 02/22/25 11:00 98.6 Result Diagram: 02/22/2542502/22/25425 General-patient not in any acute distress, chronically ill-appearing, obese, mildly confused HEENT-atraumatic normocephalic, neck supple without elevated JVD, no thyromegaly or carotid bruit. No lymphadenopathy bilaterally. Eyes-no icterus or pallor seen in eyes, poor eye contact keeping her eyes closed Chest-clear to auscultation bilaterally, breathing nonlabored no tachypnea, no wheezing, no crepitation, no crackles. Heart-S1-S2 normal, regular heart rate no murmur Abdomen bowel sounds positive on auscultation, soft nondistended nontender no guarding, no rigidity. Marked demarcation between upper abdomen which is big and below umbilical it is soft and flabby Skin no active skin rash Neurology-grossly intact, nonfocal mildly confused but responded to verbal commands Extremity- no pedal edema able to move all 4 extremities Problem\\Assessment\\Plan Patient is 65-year-old female with known medical history of GERD, Pancreatitis, Chronic Back Pain, Anxiety, Depression. This is patient's 3rd admission since January 28, 2025 in our hospital. On January 28, 2025 she was discharged with a diagnosis of left ankle fracture due to ground level mechanical fall toxic metabolic encephalopathy acute kidney injury anxiety, peripheral neuropathy and other diagnosis. In on January she was diagnosed with right ankle stress fracture nondisplaced fracture of anterior dorsal aspect of talus, chronic back pain. In both her visit she was sent to rehab. Patient [facility]'s [facility] . Hospitalist service contacted for admission due to acute kidney injury, altered level of consciousness and possible pneumonia. # altered level of consciousness- Son who was present at bedside concerned about her current medical status. All medications discussed from rehab medication list and it was explained that patient is on multiple sedative and narcotic medication which can cause altered level of consciousness, 02/21/25- Patient was seen in presence of patient's daughter and other family member today. Daughter who was present at bedside concerned about her current altered medical status and pain medication needs . All medications discussed from rehab medication list and it was explained that patient is on multiple sedative and narcotic medication which can cause altered level of consciousness, patient is also on hydrochlorothiazide 25 mg for blood pressure control contributing to acute kidney injury. Care plan discussed with the patient's family member and patient , all questions answered and all concerns addressed appropriately. Patient had paracentesis done only 40 mL fluid was taken out. But as per pelvis ultrasound report " Essentially nondiagnostic exam due to technique and large volume ascites. Nonvisualization of the uterus and bilateral ovaries" # acute kidney injury - patient is also on hydrochlorothiazide 25 mg for blood pressure control contributing to acute kidney injury. IV fluids ordered we will monitor patient's renal function # possible pneumonia with elevated procalcitonin. Patient is started on strep ceftriaxone and Zithromax. # patient later become agitated Ativan and Valium ordered # other comorbidities needs to be treated during hospitalization include - GERD, Chronic Back Pain, Anxiety, Depression. We will continue to monitor patient's labs and vitals closely . Needs physical therapy evaluation before discharge . Code status discussed with the patient s son , he mentioned patient is full code and showed [facility] record. home medication reconciliation updated in electronic records. Further management depending on response to treatment . I will continue to follow patient in a.m. patient is likely to be discharged tomorrow if clinically stable Date of Service: Feb 22, 2025 Billing Provider: CY NEGRETE MD Common Visit Codes: [id number] INP/OBS CARE(HIGH) CY NEGRETE MD Feb 22, 2025 21:10
[2025-02-23] VITALS (8 sets, daily range): BP systolic 151–158; BP diastolic 66–71; PULSE 85–93; RESP 16–22; TEMP 97.8–99.5; O2SAT 92–95
[2025-02-23 05:04] LABS: CREATININE 1.02 MG/DL (0.40-0.90); TOTAL CARBON DIOXIDE 26.6 MMOL/L (24-32); eCRCL 53 ML/MIN; eGFR 54 ML/MIN
[2025-02-23 05:05] LABS: MEAN PLATELET VOLUME 7.4 FL (7.4-10.4); RED CELL DISTRIBUTION WIDTH 14.3 % (11.5-14.5)
--- NOTE | 2025-02-23 20:17 | PROCEDURE NOTE- Residance ---
Procedure Note Providers to CC CC: SHEY ALVAREZ, LIZBETH ~ Planned Procedure Paracentesis Indications Large volume ascites Rn Invasive Dr. Jeevan Higgins Type of Anesthesia Local Informed Consent Taken Description The risks and benefits of the procedure including but not limited to bleeding, infection and injury to abdominal organs were explained to the patient and written informed consent was obtained. Optimal site for puncture was determined using ultrasound and the area sterilized and draped. Using a 5 Croatian Yueh catheter, paracentesis was performed in the left lower quadrant abdomen. Approximately 3.15 liters of serous fluid was removed. The patient tolerated the procedure well. There were n o immediate complications. Estimated Blood Loss None Complication None Date of Service: Feb 23, 2025 Billing Provider: SHAHLA HIGGINS MD, SURYA PRATIK, LIZBETH Feb 23, 2025 20:17
--- NOTE | 2025-02-23 20:31 | DISCHARGE SUMMARY ---
Discharge Summary Providers to CC ~ Discharge Summary Admission Diagnosis: LEFT LUNG PNEUMONIA, ALTERED LEVEL OF CONSCIOUSNESS, ACUTE KIDNEY INJURY Hospital Course DATE OF ADMISSION: February 19, 2025 DATE OF DISCHARGE:February 23, 2025 CBC testing done on February 23, 2025 WBC 6.0 hemoglobin 11.6 hematocrit 34.0 platelet count 317. Sed rate 74. Serum chemistry done on February 23, 2025 sodium 137 potassium 3.7 creatinine 1.02 GFR 54 procalcitonin 0.62, blood culture showed no growth after four days. During hospitalization patient had paracentesis done twice, pelvis ultrasound, x-ray chest, abdomen and pelvis CT x-ray chest. Please see details of diagnostic studies in electronic health records. Discharge Diagnosis\\Comment: altered level of consciousness likely secondary to acute kidney injury and medication side effects, acute kidney injury, possible pneumonia with elevated procalcitonin. GERD, Chronic Back Pain, Anxiety, Depression. Operations\\Procedures: s/p Paracentesis Consultants: Dr. Lauren Complications: None Condition on DC: Stable Discharge Summary: Patient is 65-year-old female with known medical history of GERD, Pancreatitis, Chronic Back Pain, Anxiety, Depression. This is patient's 3rd admission since January 28, 2025 in our hospital. On January 28, 2025 she was discharged with a diagnosis of left ankle fracture due to ground level mechanical fall toxic metabolic encephalopathy acute kidney injury anxiety, peripheral neuropath y and other diagnosis. In on January she was diagnosed with right ankle stress fracture nondisplaced fracture of anterior dorsal aspect of talus, chronic back pain. In both her visit she was sent to rehab. Patient today's coming from [facility] rehab . Hospitalist service contacted for admission due to acute kidney injury, altered level of consciousness and possible pneumonia. # altered level of consciousness- Son who was present at bedside concerned about her current medical status. All medications discussed from rehab medication list and it was explained that patient is on multiple sedative and narcotic medication which can cause altered level of consciousness, 02/21/25- Patient was seen in presence of patient's daughter and other family m ember today. Daughter who was present at bedside concerned about her current altered medical status and pain medication needs . All medications discussed from rehab medication list and it was explained that patient is on multiple sedative and narcotic medication which can cause altered level of consciousness, patient is also on hydrochlorothiazide 25 mg for blood pressure control contributing to acute kidney injury. Care plan discussed with the patient's family member and patient , all questions answered and all concerns addressed appropriately. Patient had paracentesis done only 40 mL fluid was taken out. But as per pelvis ultrasound report " Essentially nondiagnostic exam due to technique and large volume ascites. Nonvisualization of the uterus and bilateral ovaries" Repeat paracentesis done on February 23, 2025 Approximately 3.15 liters of s erous fluid was removed. # acute kidney injury - patient is also on hydrochlorothiazide 25 mg for blood pressure control contributing to acute kidney injury. IV fluids ordered we will monitor patient's renal function # possible pneumonia with elevated procalcitonin. Patient is started on strep ceftriaxone and Zithromax. # patient later become agitated Ativan and Valium ordered # other comorbidities needs to be treated during hospitalization include - GERD, Chronic Back Pain, Anxiety, Depression. Patient is feeling better she has been afebrile and getting discharged to rehab in stable condition. Medication reconciliation done for rehab facility. Patient is seen and examined on the day of discharge. All questions and queries answered to the best of my professional medical knowledge. manager stone involved in patient's discharge plan. General-patient not in any acute distress, chronically ill-appearing, obese, not confused HEENT-atraumatic normocephalic, neck supple without elevated JVD, no thyromegaly or carotid bruit. No lymphadenopathy bilaterally. Eyes-no icterus or pallor seen in eyes, poor eye contact keeping her eyes closed Chest-clear to auscultation bilaterally, breathing nonlabored no tachypnea, no wheezing, no crepitation, no crackles. Heart-S1-S2 normal, regular heart rate no murmur Abdomen bowel sounds positive on auscultation, soft nondistended nontender no guarding, no rigidity. Skin no active skin rash Neurology-grossly intact, nonfocal not confused but responded to verbal commands Extremity- no pedal edema able to move all 4 extremities *Problems/Diagnosis: (1) Acute kidney injury Status: Acute Total Time Spent on D/C: > 30 Minutes Date of Service: Feb 23, 2025 Billing Provider: CY NEGRETE MD Common Visit Codes: 98168-NDH/OBS DISCH DAY >30min CY NEGRETE MD Feb 23, 2025 20:30
== END 2025-02-23 16:18 | DRG 91 ==
LOC: ER 08:05 → ED HOLD 12:17 → SUR 3N 22:25
PROVIDERS: ADMIT Internal Medicine; ATTEND Internal Medicine
PROC: 0W9G3ZZ Drainage of Peritoneal Cavity, Percutaneous Approach (ICD-10-PCS; principal; 2025-02-21)
PROC: 0W9G3ZZ Drainage of Peritoneal Cavity, Percutaneous Approach (ICD-10-PCS; 2025-02-23)
PROC: BW211ZZ Computerized Tomography (CT Scan) of Abdomen and Pelvis using Low Osmolar Contrast (ICD-10-PCS; 2025-02-23)
DX: G92.8 Other toxic encephalopathy (principal); J18.9 Pneumonia, unspecified organism; N17.0 Acute kidney failure with tubular necrosis; R18.8 Other ascites; K21.9 Gastro-esophageal reflux disease without esophagitis; E86.0 Dehydration; M54.9 Dorsalgia, unspecified; G89.29 Other chronic pain; F41.9 Anxiety disorder, unspecified; T50.2X5A Adverse effect of carbonic-anhydrase inhibitors, benzothiadiazides and other diuretics, initial encounter; F32.A Depression, unspecified; Z90.710 Acquired absence of both cervix and uterus; Z88.0 Allergy status to penicillin; Z79.82 Long term (current) use of aspirin; Z79.899 Other long term (current) drug therapy; Y92.89 Other specified places as the place of occurrence of the external cause
CPT/HCPCS: 36415; 36600; 49083; 71045; 74176; 76857; 80048; 80053; 81003; 82042; 82140; 82803; 82945; 83605; 83615; 83735; 83880; 84145; 84157; 84484; 85018; 85025; 85651; 87040; 87070; 87075; 87081; 89051; 93005; 94640; 94760; 96365; 97110; 97161; 97530; 99285; A4314; A4615; A4620; A5200; A6213; A6258; A6449; C1729; G0378; J0456; J0696; J1644; J2270; J2405; J2919; J3360; J7030